=== PATIENT | female | born 1965 | race Caucasian/White ===

== ENCOUNTER 2020-03-08 12:46 | Emergency (ER) | payer OTHER, MEDICARE, MEDICAID, SELFPAY ==
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
[2020-03-08 13:00] VITALS: BP 151/73; PULSE 88; RESP 20; TEMP 37; O2SAT 98
== END 2020-03-08 13:16 | disposition home or self-care (01) ==
PROVIDERS: Emergency Provider Nurse Practitioner Family
DX: S39.012A Strain of muscle, fascia and tendon of lower back, initial encounter (principal); S16.1XXA Strain of muscle, fascia and tendon at neck level, initial encounter; V43.51XA Car driver injured in collision with sport utility vehicle in traffic accident, initial encounter; Y92.488 Other paved roadways as the place of occurrence of the external cause
CPT/HCPCS: 99213; G0463

== ENCOUNTER 2020-03-10 20:52 | Emergency (ER) | payer OTHER, SELFPAY ==
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
[2020-03-10 21:03] VITALS: BP 109/94; PULSE 96; RESP 20; TEMP 37; O2SAT 94
[2020-03-10] MEDS: KETOROLAC (*BKC) 60 MG/2 ML VIAL 30 MG IM (21:25)
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
--- NOTE | 2020-03-10 22:29 | PC.NURSE ---
oreinted to [facility], resting quietly with lights off
[2020-03-10] MEDS: AMOXICILLIN/CLAVULANATE K 875-125 MG TAB 1 TABLET PO (22:34)
--- NOTE | 2020-03-10 22:34 | PC.NURSE ---
patient hungry, eating cottage cheese
[2020-03-10 23:06] VITALS: BP 140/88; PULSE 70; RESP 18; TEMP 36.6; O2SAT 95
== END 2020-03-10 22:40 | disposition home or self-care (01) ==
PROVIDERS: Emergency Provider Family Medicine
DX: K13.0 Diseases of lips (principal)
CPT/HCPCS: 70110; 96372; 99283; A9270; J1885

== ENCOUNTER 2020-03-11 16:04 | Emergency (ER) | payer OTHER, SELFPAY ==
--- NOTE | 2020-03-11 16:39 | ED.DENTAL ---
HPI - Dental/Oral General Chief complaint: Dental/Oral Stated complaint: swelling in face Time Seen by Provider: 03/11/20 16:39 History of Present Illness HPI Narrative: 54-year-old female patient returns again to the ER with chief complaints of swelling of the lip and pain in the right side of her chin and face area. The patient was seen here last night for the same reason. She states that she had a small bump on the outside of the lip that she squeezed and then later developed some swelling and pain in the right lower lip. She was diagnosed with cellulitis of the lip yesterday and started on Augmentin. She got the dose here last night however she has not picked up her medication because she believes that she was supposed to take the medication only once a day. She denies any trouble swallowing. She has no difficulty with talking. She does hurt when she opens her mouth. She is not drooling. She denies any fever or chills. Related Data Home Medications Medication Instructions Recorded Confirmed glimepiride 4 mg DAILY 06/28/19 03/10/20 metformin 1,000 mg PO BID 06/28/19 03/10/20 Allergies Allergy/AdvReac Type Severity Reaction Status Date / Time ciprofloxacin Allergy Unknown RASH, Verified 06/28/19 16:12 THROAT SWELLING aspirin AdvReac Mild sick to Verified 03/10/20 21:29 stomach ketorolac AdvReac Mild sick to Verified 03/10/20 21:29 stomach CIPROFLOXACIN HCL Allergy Unknown RASH, Uncoded 06/28/19 16:12 THROAT SWELLING Contrast Media Allergy Unknown Unknown Uncoded 06/28/19 16:12 HYDROMORPHONE HCL Allergy Unknown RASH, Uncoded 06/28/19 16:12 THROAT SWELLING Review of Systems Review of Systems: All systems reviewed & are unremarkable except as noted in HPI and below PMFSH Past Medical History Medical History (Updated 03/11/20 @ 16:53 by Valorie High MD) Diabetes mellitus Social History Social History Gender identity (if verbalized by the patient): Female Exam Narrative: Exam Narrative: Alert and oriented female in mild discomfort from pain otherwise no acute distress. She does not appear ill. There is an obvious swelling and redness of the right lower lip and the redness extends into the face and in the submental area as well. There is no lymphadenopathy. She can move her tongue. There is no induration on palpation of her submental or the neck. No drooling is noted. 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 She is also advised to take Tylenol and ibuprofen to control the pain. She is to follow-up with her primary care physician. We will however give her 1 dose of Augmentin here and she will also receive 60 mg of ketorolac for pain control intramuscularly. Discharge Plan Discharge Clinical Impression: Cellulitis of lip Patient Disposition: Home, Self-Care Condition: Stable Instructions: Antibiotic Form Additional Instructions: take the antibiotics strictly as prescribed and finish the entire course. Take Tylenol 650 and ibuprofen 400 mg every 8-12 hours as needed for pain Stay well-hydrated Follow-up with your primary care physician within the next week or sooner as needed Prescriptions: No Action amoxicillin-pot clavulanate [Augmentin] 875-125 mg
[2020-03-11 16:45] VITALS: BP 126/74; PULSE 89; RESP 18; TEMP 36.2; O2SAT 97
[2020-03-11] MEDS: AMOXICILLIN/CLAVULANATE K 875-125 MG TAB 1 TABLET PO (17:06)
[2020-03-11] MEDS: KETOROLAC (*BKC) 60 MG/2 ML VIAL IM (17:07)
== END 2020-03-11 17:24 | disposition home or self-care (01) ==
PROVIDERS: Emergency Provider Emergency Medicine
DX: K13.0 Diseases of lips (principal)
CPT/HCPCS: 96372; 99282; 99283; A9270; J1885

== ENCOUNTER 2020-06-07 17:18 | Emergency (ER) | payer MEDICARE, SELFPAY ==
[2020-06-07 17:25] VITALS: BP 163/89; PULSE 96; RESP 20; TEMP 36.9; O2SAT 100
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
[2020-06-07 17:39] VITALS: BP 163/89; PULSE 96; RESP 20; TEMP 36.9; O2SAT 100
== END 2020-06-07 18:15 | disposition home or self-care (01) ==
PROVIDERS: Emergency Provider Nurse Practitioner
DX: K12.0 Recurrent oral aphthae (principal); J02.9 Acute pharyngitis, unspecified; Z20.828 Contact with and (suspected) exposure to other viral communicable diseases; M19.90 Unspecified osteoarthritis, unspecified site; J44.9 Chronic obstructive pulmonary disease, unspecified; E11.9 Type 2 diabetes mellitus without complications; K21.9 Gastro-esophageal reflux disease without esophagitis; E78.00 Pure hypercholesterolemia, unspecified; I10 Essential (primary) hypertension; N28.9 Disorder of kidney and ureter, unspecified
CPT/HCPCS: 87880; 99213; G0463

== ENCOUNTER 2021-10-01 09:17 | Emergency (ER) | payer OTHER, SELFPAY ==
[2021-10-01 09:28] VITALS: BP 158/86; PULSE 93; RESP 16; TEMP 37.1; O2SAT 98
[2021-10-01 09:31] VITALS: BP 158/86; PULSE 93; RESP 16; TEMP 37.1; O2SAT 98
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
== END 2021-10-01 10:25 | disposition home or self-care (01) ==
PROVIDERS: Emergency Provider Nurse Practitioner; PCP Internal Medicine
DX: S29.012A Strain of muscle and tendon of back wall of thorax, initial encounter (principal); X58.XXXA Exposure to other specified factors, initial encounter; E11.9 Type 2 diabetes mellitus without complications; I10 Essential (primary) hypertension; J44.9 Chronic obstructive pulmonary disease, unspecified; K21.9 Gastro-esophageal reflux disease without esophagitis; M19.90 Unspecified osteoarthritis, unspecified site; F03.90 Unspecified dementia, unspecified severity, without behavioral disturbance, psychotic disturbance, mood disturbance, and anxiety; E78.00 Pure hypercholesterolemia, unspecified
CPT/HCPCS: 99213; G0463

== ENCOUNTER 2022-06-21 14:14 | Emergency (ER) | payer OTHER, SELFPAY ==
--- NOTE | ~2022-06-21 | XR_ITS ---
XR shoulder RT min 2V DATE: 06/21/2022 14:44 INDICATION: Right shoulder pain. No injury. TECHNIQUE: 4 views COMPARISON: None FINDINGS: Mild degenerative change at the right acromioclavicular joint. No fracture or dislocation, periosteal reaction or bone destruction or abnormal soft tissue calcifica tion of the right shoulder. IMPRESSION: Mild degenerative change at right acromioclavicular joint Reviewed, dictated and finalized at location A. [employer] HEL[employer]
[2022-06-21 14:19] VITALS: BP 131/57; PULSE 97; RESP 20; TEMP 35.6; O2SAT 96
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
--- NOTE | 2022-06-21 15:54 | PC.NURSE ---
[id number]-- family came to nurse station and asked if pt can have some cream for the area to face that she keeps picking. REQUISITION APPROVER states that she would send something in.
== END 2022-06-21 15:56 | disposition home or self-care (01) ==
PROVIDERS: Emergency Provider Nurse Practitioner Family
DX: G89.29 Other chronic pain (principal); M25.511 Pain in right shoulder; L30.9 Dermatitis, unspecified; J44.9 Chronic obstructive pulmonary disease, unspecified; E11.9 Type 2 diabetes mellitus without complications; K21.9 Gastro-esophageal reflux disease without esophagitis; E78.00 Pure hypercholesterolemia, unspecified; I10 Essential (primary) hypertension; F41.9 Anxiety disorder, unspecified
CPT/HCPCS: 73030; 99213; G0463

== ENCOUNTER 2023-05-17 13:32 | Emergency (ER) | payer OTHER, SELFPAY ==
--- NOTE | ~2023-05-17 | XR_ITS ---
EXAMINATION: XR chest 2V DATE: 05/17/2023 14:09 INDICATION: Chest pain TECHNIQUE: PA and lateral views of the chest are obtained. COMPARISON: 10/15/2013 FINDINGS: The lungs are free of acute opacities. No pleural effusion or pneumothorax. The cardiomedia stinal silhouette is normal. There is moderate thoracic spondylosis. IMPRESSION: 1. No acute cardiopulmonary abnormality. Reviewed, dictated and finalized at location L.
--- NOTE | 2023-05-17 13:34 | ECG_ITS ---
Measurements Intervals [place] Rate: 78 P: 61 AR: 169 QRS: -8 QRSD: 86 T: 31 QT: 365 QTc: 416 Interpretive Statements SINUS RHYTHM NORMAL ELECTROCARDIOGRAM NO PREVIOUS ECG AVAILABLE FOR COMPARISON Electronically Signed On 05-18-2023 7:23:08 CDT by Bg Reid M.D.
[2023-05-17 13:45] VITALS: BP 121/72; PULSE 74; RESP 20; TEMP 37.2; O2SAT 95
[2023-05-17 14:14] LABS: Basophils Absolute Auto 0.1 K/mm3 (0.0-0.1); Basophils Percent Auto 0.6 % (0.2-1.2); Eosinophils Absolute Auto 0.1 K/mm3 (0-0.3); Eosinophils Percent Auto 1.4 % (0-4.4); Hemoglobin 14.5 g/dL (12.0-15.0); Immature Granulocyte Absolute 0.02 K/mm3 (0.00-0.031); Immature Granulocyte Percent A 0.2 % (0-0.5); Lymphocytes Absolute Auto 1.87 K/mm3 (0.9-3.2); Lymphocytes Percent Auto 23.1 % (18.3-44.2); Mean Corpuscular HGB Conc 31.5 g/dl (32-36); Mean Corpuscular Hemoglobin 29.4 pg (26-34); Mean Corpuscular Volume 93.1 fl (80-100); Mean Platelet Volume 11.3 fl (7.4-10.4); Monocytes Absolute Auto 0.3 K/mm3 (0.1-0.6); Monocytes Percent Auto 4.1 % (2.6-8.5); Neutrophils Absolute Auto 5.7 K/mm3 (1.3-6.7); Neutrophils Percent Auto 70.6 % (45.5-73.1); Platelet Count Result 159 k/mm3 (150-375); Red Blood Count 4.94 M/mm3 (4.2-5.4); Red Cell Distribution Width 13.4 % (11.5-14.5); White Blood Count 8.1 K/mm3 (4.5-10.0)
[2023-05-17 14:23] LABS: Alanine Aminotransferase 19 U/L (6-35); Albumin Level 4.3 g/dL (3.5-5.1); Alkaline Phosphatase 119 U/L (38-126); Anion Gap 4 mmol/L (8-16); Aspartate Amino Transferase 19 U/L (14-36); Bilirubin,Total 0.4 mg/dL (0.2-1.3); Blood Urea Nitrogen 22 mg/dL (7-17); Calcium 8.9 mg/dL (8.4-10.2); Carbon Dioxide 31 mmol/L (22-30); Chloride 100 mmol/L (98-107); Estimated CRCL calculation 47 ml/min; Estimated Glomerular Filt Rate 51; Glucose 167 mg/dL (65-110); Lipase 68 U/L (23-300); Potassium 4.3 mmol/L (3.4-5.0); Sodium 135 mmol/L (137-145)
[2023-05-17 14:28] LABS: Partial Thromboplastin Time 26.3 SECONDS (22.3-36.8); Prothrombin Time 13.3 Seconds (11.1-14.7)
[2023-05-17 14:35] LABS: Troponin I < 0.012 ng/mL (0.000-0.034)
[2023-05-17 15:29] VITALS: BP 101/52; PULSE 64; RESP 12; O2SAT 97
--- NOTE | 2023-05-17 16:28 | ED.CHESTPAIN ---
HPI - Chest Pain General Chief Complaint: Chest Pain Stated Complaint: chest pain Time Seen by Provider: 05/17/23 14:21 History of Present Illness HPI narrative: Patient is a 57-year-old female who presents to the emergency department at this afternoon complaining of chest pain and anxiety. Patient states that the chest pain started yesterday around midnight and has been intermittent on and off since then. Patient finally decided to come to the emergency department for further evaluation. She is present with her daughter and at bedside who both inform me that she has been dealing with a lot of life stressors at this time which could be precipitating her symptoms, given that she is currently going through a move. Patient admits that the left sided chest pain is positional and worsened when she lifts up her left arm. Patient admits that she can reproduce the pain. She denies any history of cardiovascular disease. Patient denies any sharp stabbing chest pain, shortness of breath, nausea, vomiting, abdominal pain, dysuria, hematuria, constipation, admits to 1 episode of diarrhea this morning denies any melena, hematochezia, fevers or chills. She also denies any headaches, dizziness, lightheadedness, blurry visions, dizziness, focal weakness, numbness and or tingling. There are no other modifying, alleviating, or precipitating factors at this time. Related Data Home Medications Medication Instructions Recorded Confirmed pen needle, diabetic 32 gauge x 10/01/21 10/01/21 (BD Josephine 2nd Gen Pen Needle) albuterol sulfate 90 mcg/actuation 2 inh inhalation DIRECTED 06/21/22 06/21/22 aerosol inhaler empagliflozin 25 mg tablet 25 mg PO DIRECTED 06/21/22 06/21/22 (Jardiance) gabapentin 600 mg tablet 600 mg PO DIRECTED 06/21/22 06/21/22 hydroxyzine HCl 25 mg tablet 25 mg PO DIRECTED 06/21/22 06/21/22 insulin degludec 100 unit/mL (3 80 unit subcut DIRECTED 06/21/22 06/21/22 mL) subcutaneous pen (Tresiba FlexTouch U-100 insulin) omeprazole 40 mg capsule,delayed 40 mg PO DAILY 06/21/22 06/21/22 release Allergies Allergy/AdvReac Type Severity Reaction Status Date / Time ciprofloxacin Allergy Severe RASH, Verified 06/21/22 14:42 THROAT SWELLING aspirin AdvReac Mild Nausea Verified 06/21/22 14:42 HYDROMORPHONE HCL Allergy Severe RASH, Uncoded 06/21/22 14:42 THROAT SWELLING Contrast Media AdvReac Severe Swelling Uncoded 06/21/22 14:42 of Lip/Tongue/Throat Review of Systems Review of Systems: All systems are reviewed and are negative unless stated otherwise in the HPI. [facility] Past Medical History Medical History Anxiety Arthritis Back injury COPD (chronic obstructive pulmonary disease) Dementia Diabetes mellitus GERD (gastroesophageal reflux disease) High cholesterol HTN (hypertension) Low kidney function Memory loss Per family Migraine Ovarian cyst Surgical History Surgical History H/O tubal ligation History of hysterectomy Family History Family History Other Asthma Dementia Diabetes mellitus Ovarian cancer Social History Social History Gender identity (if verbalized by the patient): Female Comments Patient does have a 30+ pack year smoking history. Exam Narrative: General: Alert, awake, afebrile, in no acute distress. HEENT: PERRL, no rhinorrhea, no post nasal drip, oropharynx clear. Neck: Trachea midline, no JVD, no lymphadenopathy. Cardiovascular: Regular rate and rhythm, no murmurs, rubs or gallops, no peripheral edema. Respiratory: Clear to auscultation bilaterally, no tachypnea, no wheezing, no rhonchi, no rubs, no respiratory distress. Abdomen: Soft, nontender, nondistended, no rebound, no guarding, no pe
[2023-05-17 16:35] VITALS: BP 114/51; PULSE 63; RESP 16; O2SAT 90
== END 2023-05-17 16:47 | disposition home or self-care (01) ==
PROVIDERS: General Practice; Emergency Provider Emergency Medicine
DX: R07.89 Other chest pain (principal); E11.9 Type 2 diabetes mellitus without complications; J44.9 Chronic obstructive pulmonary disease, unspecified; F03.90 Unspecified dementia, unspecified severity, without behavioral disturbance, psychotic disturbance, mood disturbance, and anxiety; E78.00 Pure hypercholesterolemia, unspecified; K21.9 Gastro-esophageal reflux disease without esophagitis; M19.90 Unspecified osteoarthritis, unspecified site; Z79.84 Long term (current) use of oral hypoglycemic drugs; Z79.4 Long term (current) use of insulin; F17.210 Nicotine dependence, cigarettes, uncomplicated; X58.XXXA Exposure to other specified factors, initial encounter
CPT/HCPCS: 36415; 71046; 80053; 83690; 84484; 85025; 85610; 85730; 93005; 99284

== ENCOUNTER 2023-10-18 12:05 | Emergency (ER) | payer MEDICARE, MEDICAID, SELFPAY ==
--- NOTE | ~2023-10-18 | XR_ITS ---
EXAMINATION: XR chest 2V DATE: 10/18/2023 13:13 INDICATION: Productive cough TECHNIQUE: PA and lateral views of the chest were obtained. COMPARISON: Chest radiograph dated 05/17/2023 FINDINGS: The lungs remain clear with no focal airspace opacities, pulmonary edema, pleural effusion or pneumot horax. The cardiomediastinal silhouette is normal. Mild to moderate midthoracic spondylosis along wit h chronic mild anterior wedging of several lower thoracic vertebral bodies. IMPRESSION: 1. No acute cardiopulmonary disease. Reviewed, dictated and finalized at location L.
[2023-10-18 12:29] VITALS: BP 111/61; PULSE 74; RESP 20; TEMP 35.5; O2SAT 99
[2023-10-18 12:34] VITALS: BP 111/61; PULSE 74; RESP 20; TEMP 35.5; O2SAT 99
--- NOTE | 2023-10-18 13:08 | ED.URI ---
HPI - URI/Sore Throat General Chief Complaint: Upper Respiratory Infection Stated Complaint: cough,headache,fever Time Seen by Provider: 10/18/23 13:02 Source: patient and RN notes reviewed Mode of arrival: ambulatory Limitations: no limitations History of Present Illness HPI Narrative: Patient presents today complaining of a 4 day history productive cough, headache, body aches, right ear pain, right upper and mid back pain, shortness of breath, pain with deep breath, vomiting and diarrhea. Patient has stopped vomiting yesterday. History of COPD. She has tried Benadryl, Zyrtec, Flonase, ibuprofen and Tylenol, Pepto-Bismol for her symptoms. Related Data Home Medications Medication Instructions Recorded Confirmed pen needle, diabetic 32 gauge x 10/01/21 10/18/23 (BD Josephine 2nd Gen Pen Needle) albuterol sulfate 90 mcg/actuation 2 inh inhalation DIRECTED 06/21/22 10/18/23 aerosol inhaler empagliflozin 25 mg tablet 25 mg PO DIRECTED 06/21/22 10/18/23 (Jardiance) gabapentin 600 mg tablet 600 mg PO DIRECTED 06/21/22 10/18/23 hydroxyzine HCl 25 mg tablet 25 mg PO DIRECTED 06/21/22 10/18/23 insulin degludec 100 unit/mL (3 80 unit subcut DIRECTED 06/21/22 10/18/23 mL) subcutaneous pen (Tresiba FlexTouch U-100 insulin) omeprazole 40 mg capsule,delayed 40 mg PO DAILY 06/21/22 10/18/23 release acyclovir 5 % topical ointment See Rx Instructions .Route .COMPLEX 10/18/23 10/18/23 betamethasone, augmented 0.05 % See Rx Instructions .Route .COMPLEX 10/18/23 10/18/23 topical ointment buprenorphine 8 mg-naloxone 2 mg See Rx Instructions .Route .COMPLEX 10/18/23 10/18/23 sublingual film gabapentin 800 mg tablet 800 mg PO DAILY 10/18/23 10/18/23 lisinopril 20 mg tablet 20 mg PO DAILY 10/18/23 10/18/23 pregabalin 150 mg capsule 150 mg PO DAILY 10/18/23 10/18/23 Allergies Allergy/AdvReac Type Severity Reaction Status Date / Time ciprofloxacin Allergy Severe RASH, Verified 10/18/23 12:24 THROAT SWELLING aspirin AdvReac Mild Nausea Verified 10/18/23 12:24 HYDROMORPHONE HCL Allergy Severe RASH, Uncoded 10/18/23 12:24 THROAT SWELLING Contrast Media AdvReac Severe Swelling Uncoded 10/18/23 12:24 of Lip/Tongue/Throat Review of Systems Review of Systems: CONSTITUTIONAL: Denies fever, chills, or sweats.+ body aches EYES: Denies visual changes, redness, or discharge. ENT: Denies rhinorrhea, congestion. + sore throat, right ear pain CARDIOVASCULAR: Denies chest pain, palpitations, or edema. RESPIRATORY:+ cough, shortness of breath GASTROINTESTINAL: Denies abdominal pain. + vomiting, diarrhea GENITOURINARY: Denies dysuria or hematuria. SKIN: Denies rash, itching, or wounds. MUSCULOSKELETAL: Denies joint pain, or myalgia.+ back pain NEUROLOGIC: Denies numbness, tingling, or weakness.+ headache PSYCH: Denies depression or anxiety. [facility] Past Medical History Medical History Anxiety Arthritis Back injury COPD (chronic obstructive pulmonary disease) Dementia Diabetes mellitus GERD (gastroesophageal reflux disease) High cholesterol HTN (hypertension) Low kidney function Memory loss Per family Migraine Ovarian cyst Surgical History Surgical History H/O tubal ligation History of hysterectomy Family History Family History Other Asthma Dementia Diabetes mellitus Ovarian cancer Social History Social History Gender identity (if verbalized by the patient): Female Comments At time of signature, I have reviewed and agree with nursing past medical, surgical, social and family history unless otherwise noted. Please see nursing chart for further information. There is no relevant family history pertinent to the pres
== END 2023-10-18 13:52 | disposition home or self-care (01) ==
PROVIDERS: Emergency Provider Nurse Practitioner
DX: J44.1 Chronic obstructive pulmonary disease with (acute) exacerbation (principal); J06.9 Acute upper respiratory infection, unspecified; Z20.822 Contact with and (suspected) exposure to COVID-19; M19.90 Unspecified osteoarthritis, unspecified site; E11.9 Type 2 diabetes mellitus without complications; K21.9 Gastro-esophageal reflux disease without esophagitis; E78.00 Pure hypercholesterolemia, unspecified; I10 Essential (primary) hypertension; F03.90 Unspecified dementia, unspecified severity, without behavioral disturbance, psychotic disturbance, mood disturbance, and anxiety; F41.9 Anxiety disorder, unspecified
CPT/HCPCS: 71046; 87426; 87804; 99213; G0463

== ENCOUNTER 2024-05-02 10:48 | Emergency (ER) | payer MEDICARE, MEDICAID, SELFPAY ==
[2024-05-02 11:07] VITALS: BP 132/78; PULSE 94; RESP 18; TEMP 37.2; O2SAT 100
[2024-05-02 11:09] VITALS: BP 132/78; PULSE 94; RESP 18; TEMP 37.2; O2SAT 100
--- NOTE | 2024-05-02 11:10 | ED.EAR ---
HPI - Ear Problem General Chief complaint: Ear Stated complaint: RT Ear Pain Time Seen by Provider: 05/02/24 11:10 Source: patient, RN notes reviewed and old records reviewed Mode of arrival: ambulatory Limitations: no limitations History of Present Illness HPI Narrative: Patient presents with complaints of right ear pain for 3 days. She reports no associated symptoms such as runny nose or fever. She denies any injury or trauma. She reports pain is worse with movement of the tragus, and she is unable to sleep on the affected side. She has been taking Excedrin with moderate relief. She voices no other concerns or complaints today. Related Data Home Medications Medication Instructions Recorded Confirmed pen needle, diabetic 32 gauge x 10/01/21 05/02/24 (BD Josephine 2nd Gen Pen Needle) empagliflozin 25 mg tablet 25 mg PO DIRECTED 06/21/22 05/02/24 (Jardiance) gabapentin 600 mg tablet 600 mg PO DIRECTED 06/21/22 05/02/24 insulin degludec 100 unit/mL (3 80 unit subcut DIRECTED 06/21/22 05/02/24 mL) subcutaneous pen (Tresiba FlexTouch U-100 insulin) omeprazole 40 mg capsule,delayed 40 mg PO DAILY 06/21/22 05/02/24 release betamethasone, augmented 0.05 % See Rx Instructions .Route .COMPLEX 10/18/23 05/02/24 topical ointment buprenorphine 8 mg-naloxone 2 mg See Rx Instructions .Route .COMPLEX 10/18/23 05/02/24 sublingual film gabapentin 800 mg tablet 800 mg PO DAILY 10/18/23 05/02/24 lisinopril 20 mg tablet 20 mg PO DAILY 10/18/23 05/02/24 amlodipine 10 mg-benazepril 40 mg 1 cap PO DAILY 05/02/24 05/02/24 capsule sumatriptan succinate 100 mg tablet 100 mg PO DAILY 05/02/24 05/02/24 Allergies Allergy/AdvReac Type Severity Reaction Status Date / Time ciprofloxacin Allergy Severe RASH, Verified 05/02/24 11:07 THROAT SWELLING aspirin AdvReac Mild Nausea Verified 05/02/24 11:07 HYDROMORPHONE HCL Allergy Severe RASH, Uncoded 05/02/24 11:07 THROAT SWELLING Contrast Media AdvReac Severe Swelling Uncoded 09/27/24 11:07 of Lip/Tongue/Throat Review of Systems Review of Systems: All systems reviewed & are unremarkable except as noted in HPI and below Constitutional: Constitutional: Reports no additional constitutional complaints ENT: Reports system reviewed and no additional complaints, except as documented, Reports as per HPI, Reports Normal hearing present, Reports otalgia, Denies nasal congestion and Denies nasal discharge Cardiovascular: Cardiovascular: Reports no additional cardiovascular complaints Respiratory: Respiratory: Reports no additional respiratory complaints Gastrointestinal: Gastrointestinal: Reports no additional gastrointestinal complaints [facility] Past Medical History Medical History Anxiety Arthritis Back injury COPD (chronic obstructive pulmonary disease) Dementia Diabetes mellitus GERD (gastroesophageal reflux disease) High cholesterol HTN (hypertension) Low kidney function Memory loss Per family Migraine Ovarian cyst Surgical History Surgical History H/O tubal ligation History of hysterectomy Family History Family History Other Asthma Dementia Diabetes mellitus Ovarian cancer Social History Social History Gender identity (if verbalized by the patient): Female Comments At the time of my signature, I reviewed and agree with the nursing past medical, surgical, social, and family history. There is no relevant family history pertinent to the patient complaint. Exam Const: General: cooperative, no acute distress, alert and awake Orientation/consciousness: oriented to person, oriented to place and oriented to time HENMT: Head: normal to inspection Ears: TM normal on the left, external ear abnorm
== END 2024-05-02 11:28 | disposition home or self-care (01) ==
PROVIDERS: Emergency Provider Nurse Practitioner Family
DX: H66.001 Acute suppurative otitis media without spontaneous rupture of ear drum, right ear (principal); M19.90 Unspecified osteoarthritis, unspecified site; J44.9 Chronic obstructive pulmonary disease, unspecified; F03.90 Unspecified dementia, unspecified severity, without behavioral disturbance, psychotic disturbance, mood disturbance, and anxiety; E11.9 Type 2 diabetes mellitus without complications; Z79.4 Long term (current) use of insulin; K21.9 Gastro-esophageal reflux disease without esophagitis; E78.00 Pure hypercholesterolemia, unspecified; I10 Essential (primary) hypertension
CPT/HCPCS: 99213; G0463